=== PATIENT | male | born 1995 | race Two or more races ===

== ENCOUNTER → 2019-10-18 | Emergency (ER) | payer MEDICAID, OTHER ==
[~2019-10-18] VITALS: Ht 172.7 cm; Wt 102.1 kg
[~2019-10-18] MED LIST: LIDOCAINE 2% (LOCAL ANESTH.) PF 5ml SDV ONE; LIDOCAINE 2%HCL (LOCAL ANESTH.) INJ 10ml MDV IJ ONE; NEOMYCIN-BACITRACIN-POLYM UNITDOSE PKG TOP OINT TOP ONE; TETANUS-DIPTH-ACEL PERTUSSIS 0.5ML SYR Tdap IM ONE
[2019-10-18 13:00] VITALS: BP 112/78
== END | disposition home or self-care (01) ==
LOC: ER 10:39
DX: S61.411A Laceration without foreign body of right hand, initial encounter (principal); W26.8XXA Contact with other sharp object(s), not elsewhere classified, initial encounter; Y93.89 Activity, other specified; Y92.89 Other specified places as the place of occurrence of the external cause; Y99.8 Other external cause status
CPT/HCPCS: 12002; 73130; 90471; 90715; 99283; J2001